=== PATIENT | female | born 1990 | race American Indian/Alaskan Native ===

== ENCOUNTER 2017-07-18 11:28 | Emergency (ER) | payer SELFPAY ==
[2017-07-18 11:36] VITALS: BP 110/64
[2017-07-18 14:22] LABS: Alanine Aminotransferase 5 units/L (7-56); Albumin 3.4 g/dL (3.9-5); BUN/Creatinine Ratio 12; Blood Urea Nitrogen 6 mg/dL (7-17); Hemolysis Index 10
[2017-07-18 14:29] LABS: Bacteria,Urine 1+ /HPF (Negative); Bilirubin,Urine NEG (Negative); Blood,Urine NEG (Negative); Color,Urine Yellow (Yellow); Mucus,Urine FEW /HPF; Nitrite,Urine NEG (Negative); Protein,Urine <15 mg/dL mg/dL (Negative)
[2017-07-18 14:55] LABS: Basophils # (Auto) 0.1 K/mm3 (0.0-0.1); Basophils % (Auto) 0.7 % (0.0-1.8); Eosinophils % (Auto) 0.3 % (0.0-4.3); Hematocrit 32.5 % (30.3-42.9); Hemoglobin 10.4 gm/dl (10.1-14.3); Lymphocytes % (Auto) 18.4 % (13.4-35.0); Mean Corpuscular HGB Conc 32 % (30-34); Mean Corpuscular Volume 70 fl (79-97); Monocytes # (Auto) 0.9 K/mm3 (0.0-0.8); Monocytes % (Auto) 8.3 % (0.0-7.3); Platelet Count 728 K/mm3 (140-440); Red Blood Count 4.64 M/mm3 (3.65-5.03); Red Cell Distribution Width 14.7 % (13.2-15.2)
--- NOTE | 2017-07-18 14:56 | Emergency Department Report ---
HPI - General Chief Complaint: Pain General Time Seen by Provider: 07/18/17 13:46 - HPI HPI: Patient states for the past 3 weeks she has been having generalized weakness especially upon waking in the morning intermittent swelling in upper and lower extremities, but no fever or chills night sweats. Patient was diagnosed with flu about a month ago got over that period but still haven't felt quite herself. She complains of pain in the morning consisting of muscle spasm in upper and lower extremity. Has taken [id number] medication with only mild relief. Pain does not involve joints but seems to be in bilateral legs and upper extremity mostly the big muscle groups. She is able to ambulate without difficulty. However she states when she went first get up in the morning it takes her a while to get ambulating. ED Past Medical Hx - Past Medical History Previous Medical History?: No Hx Hypertension: No - Surgical History Past Surgical History?: No - Social History Smoking Status: Current Every Day Smoker Substance Use Type: Alcohol, Marijuana - Medications Home Medications: Home Medications Medication Instructions Recorded Confirmed Last Taken Type Methocarbamol [Robaxin-750] 750 mg PO DAILY #30 tablet 07/18/17 Unknown Rx ED Review of Systems ROS: Stated complaint: BODY ACHES/FEET SWELLING Other details as noted in HPI Comment: All other systems reviewed and negative Respiratory: no symptoms reported Neurological: weakness Psychiatric: as per HPI Physical Exam - Physical Exam Vital Signs: Vital Signs 07/18/17 11:31 Temperature 97.8 F Pulse Rate 96 H Respiratory 18 Rate Blood Pressure 110/64 O2 Sat by Pulse 98 Oximetry Physical Exam: - Physical Exam Physical Exam: - General Limitations: No Limitations General appearance: alert, in no apparent distress, obese - Head Head exam: Present: atraumatic, normocephalic - Eye Eye exam: Present: normal appearance - ENT ENT exam: Present: mucous membranes moist - Neck Neck exam: Present: normal inspection - Respiratory Respiratory exam: Present: normal lung sounds bilaterally. Absent: respiratory distress - Cardiovascular Cardiovascular Exam: Present: normal rhythm, tachycardia. Absent: systolic murmur, diastolic murmur, rubs, gallop - GI/Abdominal GI/Abdominal exam: Present: soft, normal bowel sounds - Extremities Exam Extremities exam: Present: normal inspection - Back Exam Back exam: Present: normal inspection - Neurological Exam Neurological exam: Present: alert, oriented X3 - Psychiatric Psychiatric exam: normal affect and mood - Skin Skin exam: Present: warm, dry, intact, normal color. Absent: rash ED Course Vital Signs 07/18/17 11:31 Temperature 97.8 F Pulse Rate 96 H Respiratory 18 Rate Blood Pressure 110/64 O2 Sat by Pulse 98 Oximetry ED Medical Decision Making - Lab Data Result diagrams: 07/18/17 13:54 07/18/17 13:54 Critical care attestation.: If time is entered above; I have spent that time in minutes in the direct care of this critically ill patient, excluding procedure time. ED Disposition Clinical Impression: Muscle spasm Disposition: DC-01 TO HOME OR SELFCARE Is pt being admited?: No Does the pt Need Aspirin: No Condition: Stable Instructions: Muscle Spasm (ED) Prescriptions: Methocarbamol [Robaxin-750] 750 mg PO DAILY #30 tablet Referrals: PRIMARY CARE, [Primary Care Provider] - 3-5 Days
[2017-07-18 15:00] LABS: Mean Corpuscular Hemoglobin 23 pg (28-32)
== END 2017-07-18 15:32 | disposition home or self-care (01) ==
LOC: ED 11:28
DX: M62.838 Other muscle spasm (principal); F17.200 Nicotine dependence, unspecified, uncomplicated; F12.10 Cannabis abuse, uncomplicated
CPT/HCPCS: 36415; 80053; 81001; 82550; 84443; 85025; 99283